=== PATIENT | female | born 1975 | race Caucasian/White ===

== ENCOUNTER 2017-03-09 00:05 | Inpatient (IN) | payer OTHER ==
[2017-03-09 00:58] VITALS: BMI 29.0
--- NOTE | 2017-03-09 00:58 | HP ---
COWS - Scale Resting Pulse: 1= AR 81-100 Sweatin= Chills/Flushing Restless Observation: 3= Extraneous Movement Pupil Size: 2= Moderately Dilated Bone or Joint Aches: 2= Severe Diffuse Aches Runny Nose/ Eye Tearin= Runny Nose/Eyes GI Upset > 30mins: 3= Vomiting/Diarrhea Tremor Observation: 2= Slight Tremor Visible Yawning Observation: 2= >3x During Session Anxiety or Irritability: 2=Irritable/Anxious Goose Flesh Skin: 0=Smooth Skin COWS Score: 20 CIWA Score - CIWA Score Nausea/Vomitin Muscle Tremors: 3 Anxiety: 3 Agitation: 3 Paroxysmal Sweats: 1-Minimal Palms Moist Orientation: 0-Oriented Tacttile Disturbances: 2-Mild Itch/Numbness/Burn Auditory Disturbances: 2-Mild Harshness/Frighten Visual Disturbances: 2-Mild Sensitivity Headache: 2-Mild CIWA-Ar Total Score: 21 Admission ROS BHS - HPI Chief Complaint: i am here need help to stop using heroin and alcohol Allergies/Adverse Reactions: Allergies Allergy/AdvReac Type Severity Reaction Status Date / Time erythromycin lactobionate Allergy Verified 03/09/17 08:11 [From Erythrocin] History of Present Illness: this 41 years old female with heroin and alcohol dependence,seeking detox,last treatment 20 years ago, asthma nicotine dependence s/p tonsillectomy s/p gastric sleep for bariatric surgery Exam Limitations: No Limitations - Ebola screening Have you traveled outside of the country in the last 21 days: No Have you had contact with anyone from an Ebola affected area: No Do you have a fever: No - Review of Systems Constitutional: Chills, Diaphoresis, Night Sweats, Changes in sleep EENT: reports: Tearing, Nose Congestion Respiratory: reports: No Symptoms reported, Other (asthma) Cardiac: reports: Palpitations GI: reports: Diarrhea, Nausea, Vomiting, Abdominal cramping : reports: No Symptoms Reported Musculoskeletal: reports: Back Pain, Joint Pain, Muscle Pain, Joint Stiffness Integumentary: reports: Dryness Neuro: reports: Headache, Tremors Endocrine: reports: No Symptoms Reported Hematology: reports: No Symptoms Reported Psychiatric: reports: No Sypmtoms Reported, Judgement Intact, Mood/Affect Appropiate, Orientated x3 Patient History - Patient Medical History Hx Anemia: No Hx Asthma: Yes (on albuterol inhaler) Hx Chronic Obstructive Pulmonary Disease (COPD): No Hx Cancer: No Hx Cardiac Disorders: No Hx Congestive Heart Failure: No Hx Hypertension: No Hx Hypercholesterolemia: No Hx Pacemaker: No HX Cerebrovascular Accident: No Hx Seizures: No Hx Dementia: No Hx Diabetes: No Hx Gastrointestinal Disorders: No Hx Liver Disease: No Hx Genitourinary Disorders: No Hx Sexually Transmitted Disorders: No Hx Renal Disease (ESRD): No Hx Thyroid Disease: No Hx Human Immunodeficiency Virus (HIV): No (last 2016 negative) Hx Hepatitis C: No Hx Depression: No Hx Suicide Attempt: No Hx Bipolar Disorder: No Hx Schizophrenia: No Other Medical History: no suicidal,no homicidal - Patient Surgical History Past Surgical History: Yes Hx Abdominal Surgery: Yes (gastric sleeve bariatric surgery in 2012) Other Surgical History: tosillectomy at age of 15 - PPD History Previous Implant?: Yes Documented Results: Negative w/o proof Implanted On Prior [facility] Admission?: No PPD to be Administered?: Yes - Reproductive History Patient is a Female of Child Bearing Age (11 -55 yrs old): Yes Last Menstrual Period: 03/04/17 Patient : No - Smoking Cessation Smoking history: Current every day smoker Have you smoked in the past 12 months: Yes Aproximately how many cigarettes per day: 10 Cigars Per Day: 0 Hx Chewing Tobacco Use: No Initiated information on smoking cessation: Yes 'Breaking Loose' booklet given: 03/09/17 - Substance & Tx. History Hx Alcohol Use: Yes Hx Substance Use: Yes Substance Use Type: Alcohol, Heroin Hx Substance Use Treatment: Yes (20 years ago unknown facility) - Substances Abused Heroin Route: Injection Frequency: Daily Amount used: 15 Age of first use: 19 Date of Last Use: 03/08/17 Alcohol Route: Oral Frequency: Daily Amount used: 1pint of vodka Age of first use: 11 Date of Last Use: 03/08/17 Family Disease History - Family Disease History Family History: Denies Family Disease History: Other: Mother (dsa,alcohol) Admission Physical Exam BHS - Vital Signs Vital Signs: Vital Signs Temperature 97.3 F L 03/09/17 01:11 Pulse Rate 96 H 03/09/17 01:11 Respiratory Rate 20 03/09/17 01:11 Blood Pressure 119/76 09/07/17 01:11 O2 Sat by Pulse Oximetry (%) - Physical General Appearance: Yes: Moderate Distress, Tremorous, Irritable, Sweating, Anxious HEENTM: Yes: Normal ENT Inspection, CHARLENE, Pharynx Normal Respiratory: Yes: Within Normal Limits, Lungs Clear, Normal Breath Sounds, No Respiratory Distress Neck: Yes: Within Normal Limits, Supple, Trachea in good position Breast: Yes: Breast Exam Deferred Cardiology: Yes: Within Normal Limits, Regular Rhythm, Regular Rate, S1, S2 Abdominal: Yes: Within Normal Limits, Normal Bowel Sounds, Non Tender, Soft Genitourinary: Yes: Within Normal Limits Back: Yes: Muscle Spasm Musculoskeletal: Yes: Back pain, Joint Stiffness, Muscle Pain Extremities: Yes: Normal Range of Motion, Tremors Neurological: Yes: appliance mechanic II-XII NML intact, Fully Oriented, Alert, Motor Strength 5/5 Integumentary: Yes: Dry Lymphatic: Yes: Within Normal Limits - Diagnostic (1) Opioid dependence with withdrawal Status: Acute (2) Alcohol dependence with uncomplicated withdrawal Status: Acute (3) Nicotine dependence Status: Acute (4) S/P tonsillectomy Status: Acute (5) History of bariatric surgery Status: Acute (6) Asthma Status: Acute Cleared for Admission S - Detox or Rehab S Level of Care: Medically Managed Detox Regimen/Protocol: Methadone/Librium BHS Breath Alcohol Content Breath Alcohol Content: 0 Vital Signs - Vital Signs Vital Signs Refused: No Temperature: 97.3 F Temperature Source: Oral Pulse Rate: 96 Respiratory Rate: 20 Blood Pressure: 119/76 BP Location: Left Arm - Height Height: 5 ft 10 in - Weight Weight: 202 lb Weight Measurement Method: Standing Scale Body Mass Index (BMI): 29.0 Urine Pregancy Test - Test Device Lot Number: [id number] Expiration Date: 09/30/18 - Control Horizontal Line in Upper Control Window?: Yes - Result Urine Test Results: Negative- NO Line Present Urine Drug Screen - Test Device Lot Number: [id number] Expiration Date: 11/30/18 - Control Is Test Valid: Yes - Results Drug Screen Negative: No Urine Drug Screen Results: THC-Marijuana, ROULA-Cocaine, OPI-Opiates, BZO- Benzodiazepines
[2017-03-09] MEDS ORDERED: P-EPHED 60MG/TRIPROLIDI 2.5MG TABLET PO PRN (00:59)
[2017-03-09] MEDS ORDERED: chlordiazePOXIDE HCL 25 MG CAPSULE PO PRN (00:59)
[2017-03-09] MEDS ORDERED: MAGNESIUM HYDROX 2400MG/30ML ORAL SUSPENSION 30 ML CUP PO PRN (00:59)
[2017-03-09] MEDS ORDERED: MAGNESIUM CITRATE 300 ML BOTTLE PO PRN (00:59)
[2017-03-09] MEDS ORDERED: IBUPROFEN 400 MG TABLET (FP) PO PRN (00:59)
[2017-03-09] MEDS ORDERED: METHADONE HCL 10 MG TABLET (FOR DETOX USE ONLY) PO ONE ×3 (00:59→22:00)
[2017-03-09] MEDS ORDERED: LOPERAMIDE HCL 2 MG CAPSULE PO PRN (00:59)
[2017-03-09] MEDS ORDERED: MAG HYDROX/AL HYDROX/SIMETH 30 ML UNIT-DOSE CUP PO PRN (00:59)
[2017-03-09] MEDS ORDERED: hydrOXYzine PAMOATE 25 MG CAPSULE (FP) PO PRN (00:59)
[2017-03-09] MEDS ORDERED: guaiFENesin/D-METHORPHAN HB 10 ML UNIT-DOSE CUPS PO PRN (00:59)
[2017-03-09] MEDS ORDERED: chlordiazePOXIDE HCL 25 MG CAPSULE PO ONE (00:59)
[2017-03-09] MEDS ORDERED: diphenhydrAMINE HCL 50 MG CAPSULE PO PRN (00:59)
[2017-03-09] MEDS ORDERED: ACETAMINOPHEN 325 MG TABLET (FP) PO PRN (00:59)
[2017-03-09] MEDS ORDERED: NICOTINE POLACRILEX 2 MG GUM BC PRN (00:59)
[2017-03-09] MEDS ORDERED: MENTHOL/PHENOL 1 EACH UD MM PRN (00:59)
[2017-03-09] MEDS ORDERED: ALBUTEROL SO4 6.7 GM HFA INHALER IH PRN (01:03)
[2017-03-09] MEDS ORDERED: CYCLOBENZAPRINE HCL 10 MG TABLET (FP) PO PRN (01:24)
[2017-03-09] MEDS: chlordiazePOXIDE HCL 25 MG CAPSULE PO SCH ×2 (05:58→11:17)
[2017-03-09 09:54] LABS: MCH 21.4 pg (25.7-33.7); MCHC 31.6 g/dl (32.0-36.0); MEAN CELL VOLUME 67.7 fl (80-96); PLATELET COUNT 249 K/MM3 (134-434)
[2017-03-09] MEDS ORDERED: PRENATAL VITAMINS W/ FOLIC ACID TABLET (FP) PO SCH (10:00)
[2017-03-09] MEDS ORDERED: NICOTINE 21 MG/24 HOURS TOPICAL PATCH TD SCH (10:00)
[2017-03-09] MEDS ORDERED: cloNIDine HCL 0.1 MG TABLET PO SCH ×2 (10:00)
--- NOTE | 2017-03-09 10:00 | PN ---
[facility] CIWA - CIWA Score Nausea/Vomitin-Int. Nausea w/Dry Heave Muscle Tremors: 4-Moderate,w/Arms Extend Anxiety: 4-Mod. Anxious/Guarded Agitation: 4-Moderately Restless Paroxysmal Sweats: 4-Forehead w/Sweat Beads Orientation: 0-Oriented Tacttile Disturbances: 0-None Auditory Disturbances: 0-None Visual Disturbances: 0-None Headache: 0-None Present CIWA-Ar Total Score: 20 S COWS - Scale Resting Pulse: 1= ND 81-100 Sweatin= Chills/Flushing Restless Observation: 1= Difficult to Sit Still Pupil Size: 1= Pupils >than Normal Bone or Joint Aches: 1= Mild Discomfort Runny Nose/ Eye Tearin= Nasal Congestion GI Upset > 30mins: 2= Nausea/Diarrhea Tremor Observation of Outstretched Hands: 2= Slight Tremor Visible Yawning Observation: 1= 1-2x During Session Anxiety or Irritability: 4=Extreme Anxiety Goose Flesh Skin: 3=Piloerection COWS Score: 18 S Progress Note (SOAP) Subjective: nausea, sweats, interrupted sleep, anxiety, tremosr, refusingmethadone for opioid /heroin detox, would like to use suboxone, agrees to wait 24 hours after last heroin use before medications are ordered Objective: 03/09/17 09:58 Vital Signs - 24 hr 03/09/17 03/09/17 03/09/17 01:22 01:50 03:30 Temperature 97.3 F L 97.5 F L Pulse Rate 96 H 91 H Respiratory 20 20 18 Rate Blood Pressure 119/76 113/71 03/09/17 06:50 Temperature 97.7 F Pulse Rate 73 Respiratory 18 Rate Blood Pressure 102/56 Laboratory Tests 03/09/17 07:00 WBC 5.0 RBC 3.94 Hgb 8.4 L Hct 26.7 L MCV 67.7 L MCH 21.4 L MCHC 31.6 L RDW 17.0 H Plt Count 249 MPV 8.0 lab s pending Assessment: 03/09/17 09:59 withdrwal sx, microcytic anemia, tearful , crying depresssed Plan: cont detox, fludis, encourage amulation, d/c methadone at patients request, continue libirum, symptomatic relief, can start suboxone if requeste 24 hours after last heroin use. start iron/colace
[2017-03-09] MEDS ORDERED: ZOLPIDEM TARTRATE 10 MG TABLET (PARK CARE ONLY) PO PRN (10:02)
[2017-03-09 10:09] LABS: ALBUMIN 3.2 g/dl (3.4-5.0); ANION GAP 7 (8-16); CALCIUM 8.7 mg/dL (8.5-10.1); CO2 30 mmol/L (21-32); GLUCOSE,RANDOM 92 mg/dL (74-106); SGPT/ALT 20 U/L (12-78)
[2017-03-09 10:12] LABS: ALK PHOS 94 U/L (45-117); BILIRUBIN,TOTAL 0.5 mg/dL (0.2-1.0); CREATININE 0.7 mg/dL (0.55-1.02); SGOT/AST 19 U/L (15-37); TOT PROT 6.9 g/dl (6.4-8.2)
[2017-03-09 10:48] LABS: HIV 1 & 2 AB NEGATIVE; HIV 1 AGp24 NEGATIVE
[2017-03-09 10:54] LABS: PLATELET ESTIMATE ADEQUATE (NORMAL)
[2017-03-09] MEDS ORDERED: FERROUS SO4 325 MG TABLET (FP) PO SCH (12:00)
--- NOTE | 2017-03-09 12:32 | EKG ---
Test Reason : Blood Pressure : / mmHG Vent. Rate : 083 BPM Atrial Rate : 083 BPM P-R Int : 158 ms QRS Dur : 096 ms QT Int : 398 ms P-R-T Axes : 078 064 062 degrees QTc Int : 467 ms NORMAL SINUS RHYTHM WITH SINUS ARRHYTHMIA POSSIBLE LEFT ATRIAL ENLARGEMENT BORDERLINE ECG NO PREVIOUS ECGS AVAILABLE Confirmed by EDNA GIBBS MD ([id number]) on 03/09/2017 12:31:49 PM Referred By: Delfino Jarrett Confirmed By:EDNA GIBBS MD
[2017-03-09] MEDS ORDERED: GABAPENTIN 100 MG CAPSULE (FP) PO SCH (14:00)
[2017-03-09 16:54] LABS: URINE APPEARANCE CLOUDY; URINE BILIRUBIN NEGATIVE (NEGATIVE); URINE BLOOD NEGATIVE (NEGATIVE); URINE COLOR DKYELLOW; URINE GLUCOSE (UA) NEGATIVE (NEGATIVE); URINE KETONE NEGATIVE (NEGATIVE); URINE NITRITE POSITIVE (NEGATIVE); URINE PROTEIN NEGATIVE (NEGATIVE); URINE UROBILINOGEN 4.0 E.U/dl mg/dL (0.2-1.0)
--- NOTE | 2017-03-09 16:55 | PN ---
[facility] Progress Note Note: Patient found suboxone program - counselor made appt for tomorrow wishes to leve today so as not to miss appointment. [email or web address] risks of not completing detox as ordered, nursing aware, discussed follow up and after care with patient including risk of seziures and possible with alochol/ benzodiazepeine jameson bhatti
--- NOTE | 2017-03-09 16:56 | DS ---
[facility] Detox Discharge Summary Admission Date: 03/09/17 Discharge Date: 03/09/17 - History Present History: Alcohol Dependence, Opioid Dependence Pertinent Past History: asthma, bariatric surgery, insomnia, anxiety, depression, nicotine dependence, failed mmmtp and detox in past. - Physical Exam Results Vital Signs: Vital Signs Temperature 97.8 F 03/09/17 14:19 Pulse Rate 83 03/09/17 14:19 Respiratory Rate 18 03/09/17 14:19 Blood Pressure 112/58 03/09/17 14:19 O2 Sat by Pulse Oximetry (%) Laboratory Tests 03/09/17 03/09/17 03/09/17 07:00 07:00 07:00 WBC 5.0 RBC 3.94 Hgb 8.4 L Hct 26.7 L MCV 67.7 L MCH 21.4 L MCHC 31.6 L RDW 17.0 H Plt Count 249 MPV 8.0 Platelet Estimate Adequate Platelet Comment No clumping noted RBC Morphology Sodium 140 Potassium 3.8 Chloride 103 Carbon Dioxide 30 Anion Gap 7 L BUN 8 Creatinine 0.7 Creat Clearance w eGFR > 60 Random Glucose 92 Calcium 8.7 Total Bilirubin 0.5 AST 19 ALT 20 Alkaline Phosphatase 94 Total Protein 6.9 Albumin 3.2 L RPR Titer Nonreactive HIV 1&2 Antibody Screen HIV P24 Antigen 03/09/17 07:00 WBC RBC Hgb Hct MCV MCH MCHC RDW Plt Count MPV Platelet Estimate Platelet Comment RBC Morphology Sodium Potassium Chloride Carbon Dioxide Anion Gap BUN Creatinine Creat Clearance w eGFR Random Glucose Calcium Total Bilirubin AST ALT Alkaline Phosphatase Total Protein Albumin RPR Titer HIV 1&2 Antibody Screen Negative HIV P24 Antigen Negative Pertinent Admission Physical Exam Findings: withdrawal sx - Treatment Hospital Course: Detox Protocol Followed, Rehab Referral Accepted Patient has Accepted a Rehab Referral to: Yes, going to suboxone program tomorrow - Medication Discharge Medications: Ambulatory Orders NK [No Known Home Medication] 03/09/17 - Diagnosis (1) Alcohol dependence with uncomplicated withdrawal Current Visit: Yes Status: Acute (2) Asthma Current Visit: Yes Status: Acute (3) History of bariatric surgery Current Visit: Yes Status: Acute (4) Nicotine dependence Current Visit: Yes Status: Acute (5) Opioid dependence with withdrawal Current Visit: Yes Status: Acute (6) S/P tonsillectomy Current Visit: Yes Status: Acute (7) Microcytic anemia Current Visit: Yes Status: Acute - AMA Did Patient Leave Against Medical Advice: Yes
[2017-03-09 17:05] LABS: URINE LEUK ESTERASE 1+ (NEGATIVE)
[2017-03-09 17:18] LABS: CALCIUM OXALATE CRYSTALS MODERATE /hpf (NONE SEEN); URINE BACTERIA MANY /hpf (NONE SEEN); URINE MUCUS RARE; URINE RBC 5 /hpf (0-3); URINE WBC 19 /hpf (3-5); YEAST FEW
[2017-03-09] MEDS ORDERED: THIAMINE HCL 100 MG TABLET (FP) PO SCH (22:00)
[2017-03-09] MEDS ORDERED: NAPROXEN 500 MG TABLET (FP) PO SCH (22:00)
[2017-03-09] MEDS ORDERED: DOCUSATE SODIUM 100 MG CAPSULE (FP) PO SCH (22:00)
[2017-03-10] MEDS ORDERED: chlordiazePOXIDE HCL 25 MG CAPSULE PO SCH (05:00)
[2017-03-10 07:39] VITALS: BP 119/76; PULSE 96; TEMP 97.3
[2017-03-10] MEDS ORDERED: PANTOPRAZOLE 40 MG TABLET (FP) PO SCH (10:00)
[2017-03-10] MEDS ORDERED: METHADONE HCL 5 MG TABLET (FOR DETOX USE ONLY) PO SCH (10:00)
[2017-03-11] MEDS ORDERED: chlordiazePOXIDE 5 MG CAPSULE PO SCH (05:00)
[2017-03-11] MEDS ORDERED: METHADONE HCL 5 MG TABLET (FOR DETOX USE ONLY) PO SCH (10:00)
[2017-03-12] MEDS ORDERED: chlordiazePOXIDE HCL 10 MG CAPSULE PO SCH (05:00)
[2017-03-13] MEDS ORDERED: METHADONE HCL 10 MG TABLET (FOR DETOX USE ONLY) PO SCH (10:00)
[2017-03-14] MEDS ORDERED: METHADONE HCL 10 MG TABLET (FOR DETOX USE ONLY) PO SCH (06:00)
== END 2017-03-09 17:50 | disposition left against medical advice (07) | DRG 770 ==
LOC: YASAS 00:05 → Y6N 01:07
PROVIDERS: ADMIT Internal Medicine Addiction Medicine; ATTEND Internal Medicine
PROC: HZ2ZZZZ Detoxification Services for Substance Abuse Treatment (ICD-10-PCS; principal; 2017-03-09)
DX: F11.23 Opioid dependence with withdrawal (principal); F10.230 Alcohol dependence with withdrawal, uncomplicated; F17.210 Nicotine dependence, cigarettes, uncomplicated; F32.9 Major depressive disorder, single episode, unspecified; J45.909 Unspecified asthma, uncomplicated; D50.9 Iron deficiency anemia, unspecified; R45.86 Emotional lability; Z98.84 Bariatric surgery status; Z90.89 Acquired absence of other organs; Z88.8 Allergy status to other drugs, medicaments and biological substances
CPT/HCPCS: 36415; 80053; 81003; 81015; 85027; 86593; 87389; 93005; 93010